=== PATIENT | male | born 1970 | race Caucasian/White ===

== ENCOUNTER 2017-06-30 20:02 | Emergency (ER) | payer SELFPAY ==
[2017-06-30 20:08] VITALS: BP 112/77
[2017-06-30] MEDS ORDERED: TORADOL 60 MG VIAL IM ONE (20:41)
[2017-06-30] MEDS ORDERED: TORADOL 60 MG VIAL ONE (20:43)
--- NOTE | 2017-06-30 20:54 | DR.GENAD ---
HPI - PCP Primary Care Physician: ROMEO BONILLA - Complaint/Symptoms Chief Complaint Doctors Comments: Patient admits to moving a steel beam with a fork lift and tried to help move the beam by lifting with arms. Admits to sharp low back pain radiating down right leg, contex moving heavy, severe, last week. Chief Complaint:: "I HURT MY BACK LAST WEEK PICKING UP A BEAM. I PUT UP METAL BUILDINGS FOR A LIVING. FOR LAST 2 DAYS I HAVE PAIN GOING DOWN MY RIGHT LEG AND IT IS THROBBING." Self Treatment fo Chief Complaint: MOTRIN 800MG - Source History Provided: Patient - Mode of Arrival Mode of Arrival: Ambulatory - Timing Onset of Chief Complaint: 06/28/17 PMH - PMH Past Medical History: No Past Surgical History: Yes Past Surgical History Comment: PARTIAL RT LOBE REMOVED FROM LUNG - Family History History of Family Medical Conditions: Yes Family Medical History: Diabetes Mellitus - Social History Type of Tobacco Use: Cigarettes Alcohol Use: None Do you use any recreational Drugs:: No Lives With: Alone Lives Where: Home - infectious screening Have you traveled outside the country in the last 6 months?: No Isolation: Standard ROS - Review of Systems Constitutional: negative: Diaphoresis Eyes: No Symptoms Reported ENTM: No Symptoms Reported Respiratoy: No Symptoms Reported Cardiovascular: No Symptoms Reported Gastrointestinal/Abdominal: No Symptoms Reported Genitourinary: No Symptoms Reported Neurological: No Symptoms Reported Musculoskeletal: Back Pain Integumentary: No Symptoms Reported Hematologic/Lymphatic: No Symptoms Reported Endocrine: No Symptoms Reported Psychiatric: No Symptoms Reported All Other Systems: Reviewed and Negative PE - Vital Signs Vitals: Temperature 97.8 F Pulse Rate 68 Respiratory Rate 16 Blood Pressure 112/77 O2 Sat by Pulse Oximetry 98 - General Limitations: No Limitations General Appearance: Alert, In No Apparent Distress - Head Head Exam: Normal Inspection, Atraumatic - Eyes Eye exam: Normal Appearance, PERRL, EOMI - ENT ENT Exam: Normal Exam External Ear Exam: Normal External Inspection TM/Canal Exam: Bilateral Normal Nose Exam: Normal Nose Exam Mouth Exam: Normal Inspection Throat Exam: Normal Inspection - Neck Neck Exam: Normal Inspection - Chest Chest Inspection: Normal Inspection - Respiratory Respiratory Exam: Normal Lung Sounds Bilat Respiratory Exam: Bilateral Clear to Auscultation - Cardiovascular Cardiovascular Exam: Regular Rate, Normal Rhythm - Abdominal Exam Abdominal Exam: Normal Inspection, Normal Bowel Sounds Abdominal Tenderness: negative: RUQ, RLQ, LUQ, LLQ, Epigastrium, Suprapubic, Diffuse, Mild, Moderate, Severe, Other - Extremities Extremities Exam: Tenderness (RLE ) - Back Back Exam: Tenderness, (R) CVA Tenderness, Vertebral Tenderness (Low back ) - Neurologic Neurological Exam: Alert, Oriented X3, CN II-XII Intact - Psychiatric Psychiatric Exam: Normal Affect - Skin Skin Exam: Warm, Dry, Intact Course - Reevaluation 1st: Improved ROR - XRAY XRAY Interpreted by: Radiologist (CT Lumbar spine:There is straightening of the normal lumbar lordosis with otherwise normal lumbar spine alignment. Vertebral body heights are preserved and no lumbar spine fracture is seen. There are small disc bulges at L3-L4 through L5-S1. There is no significant spinal canal stenosis. Additionally, there is no significant body neural foraminal stensosis the visuyalized boyn pelvis unremarkable. The visualized intra abdominal structrues appear disese free. Impression: No CT evidence of acute lumbar spine injuryj. Mild lumbar spondylosis at L3-4 through L5-S1. No significant boyn spinal canal or neural foraminal stenosis.) - Diagnosis Discharge Problem: Bulging lumbar disc - Discharge Plan Condition: Stable - Follow ups/Referrals Follow ups/Referrals: ROMEO BONILLA [Primary Care Provider] - 3 days - Instructions
--- NOTE | 2017-06-30 21:21 | CT ---
Lumbar spine CT without contrast Indication: back pain with left-sided sciatica following lifting. Comparison: None available. Technique: Helical images the lumbar spine were obtained without the use of intravenous contrast. Re formatted coronal and sagittal images are also reviewed. Findings: There is straightening of the normal lumbar lordosis with otherwise normal lumbar spine alignment. V ertebral body heights are preserved and no lumbar spine fracture is seen. There are small disc bulge s at L3-4 through L5-S1. There is no significant spinal canal stenosis. Additionally, there is no si gnificant bony neural foraminal stenosis the visualized bony pelvis unremarkable. The visualized int ra-abdominal structures appear disease. Impression: No CT evidence of acute lumbar spine injury. Mild lumbar spondylosis at L3-4 through L5-S1 . No sign ificant bony spinal canal or neural foraminal stenosis. Reported By:
== END 2017-06-30 21:38 | disposition home or self-care (01) ==
LOC: ER 20:13
DX: M51.06 Intervertebral disc disorders with myelopathy, lumbar region (principal); Y93.89 Activity, other specified; Y92.69 Other specified industrial and construction area as the place of occurrence of the external cause
CPT/HCPCS: 72131; 96372; 99282; 99283; J1885